=== PATIENT | male | born 1990 | race Two or more races ===

== ENCOUNTER 2016-08-17 23:13 | Emergency (ER) | payer MEDICAID ==
[~2016-08-17] VITALS: Ht 165.1 cm; Wt 77.1 kg
[2016-08-18 00:26] VITALS: BP 119/81
== END 2016-08-18 01:02 | disposition left against medical advice (07) ==
LOC: ER 23:27
DX: S91.052A Open bite, left ankle, initial encounter (principal); W54.0XXA Bitten by dog, initial encounter; Y93.89 Activity, other specified; Y99.8 Other external cause status; Y92.89 Other specified places as the place of occurrence of the external cause